=== PATIENT | female | born 1990 | race Caucasian/White ===

== ENCOUNTER 2017-01-06 23:03 | Emergency (ER) | payer OTHER ==
[~2017-01-06] VITALS: Ht 172.7 cm; Wt 68.0 kg
[~2017-01-06 23:03] MED LIST: ADDERALL10 MG PO; ANAPROX DS550 MG PO; CLARITIN10 MG PO; CLINDAMYCIN HC150 MG PO; DOXYCYCLINE MO100 MG PO; EES400 MG PO; FIORICET 325 MG1 TAB PO; FLAGYL500 MG PO; LAMICTAL100 MG PO; MACROBID100 M1 PO; MEDROL DOSEPAK4 MG; MEDROL DOSEPAK4 MG PO; MOTRIN600 MG PO; MOTRIN800 MG PO; MULTIPLE VITAMI1 CAP PO; NO MEDS; SEPTRA DS 800 M1 TAB PO; ULTRAM50 MG PO; VALIUM10 MG PO; VICODIN 5/500 505 MG; ZITHROMAX Z PA250 MG PO; ZITHROMAX250 MG PO; ZOFRAN4 MG PO
[2017-01-07] MEDS ORDERED: DELTASONE20 M1 PO (00:32)
[2017-01-07] MEDS ORDERED: ROBITUSSIN AC 110 ML PO (00:32)
== END 2017-01-07 01:31 | disposition home or self-care (01) ==
LOC: ED 23:03
DX: J98.01 Acute bronchospasm (principal); R05 Cough; F17.200 Nicotine dependence, unspecified, uncomplicated; Z88.0 Allergy status to penicillin

== ENCOUNTER 2017-01-30 22:35 | Emergency (ER) | payer OTHER ==
[~2017-01-30] VITALS: Ht 1798 cm; Wt 68.0 kg
[~2017-01-30 22:35] MED LIST changes: +DELTASONE20 M1 PO; +ROBITUSSIN AC 110 ML PO
[2017-01-30 22:38] VITALS: BP 132/89
[2017-01-30 23:16] LABS: BASO % 0.2 % (0.0-1.0); EOS # 0.2 10*3/uL (0.0-0.4); EOS % 1.9 % (1.0-4.0); HEMATOCRIT 36.4 % (37.0-47.0); HEMOGLOBIN 11.4 g/dl (12.0-16.0); LYMPH # 4.1 10*3/uL (1.3-4.4); LYMPH % 37.8 % (27.0-41.0); MEAN CELL VOLUME 83.9 fl (81.0-99.0); MEAN CORPUSCULAR HGB 26.3 pg (27.0-31.0); MEAN CORPUSCULAR HGB CONC 31.3 g/dl (33.0-37.0); MEAN PLATELET VOLUME 10.4 fl (9.6-12.3); MONO # 0.8 10*3/uL (0.1-1.0); MONO % 7.6 % (3.0-9.0); NEUT # 5.7 10*3/uL (2.3-7.9); NEUT % 52.2 % (47.0-73.0); PLATELET COUNT AUTOMATED 277 10*3/uL (130-400); RED BLOOD COUNT 4.34 10*6/uL (4.10-5.10); WHITE BLOOD COUNT 10.9 10*3/uL (4.8-10.8)
[2017-01-30 23:29] LABS: BUN 9 mg/dl (7-24); CARBON DIOXIDE 25 mmol/L (21-32); CHLORIDE 110 mmol/L (98-107); EST GLOM FILT AFRICAN AMERICAN > 60 ml/min; GLUCOSE 95 mg/dL (65-99); POTASSIUM 3.5 mmol/L (3.5-5.1); SODIUM 143 mmol/L (136-145)
[2017-01-30 23:33] LABS: C-REACTIVE PROTEIN 0.78 MG/DL (0-0.3)
[2017-01-30 23:35] LABS: BILIRUBIN NEGATIVE (NEGATIVE); BLOOD TRACE-INTACT (NEGATIVE); CLARITY SL CLOUDY (CLEAR); COLOR YELLOW (YELLOW); GLUCOSE NEGATIVE (NEGATIVE); KETONE TRACE (NEGATIVE); LEUKO ESTERASE TRACE (NEGATIVE); NITRITE NEGATIVE (NEGATIVE); PH 5.5 (5.0-9.0); PROTEIN TRACE (NEGATIVE); UROBILINOGEN 0.2 E.U./dl (0.2-1.0)
[2017-01-30 23:43] LABS: BACTERIA 1+; EPITHELIAL CELLS 35-40; URINE REFLEX COMMENT YES (NO); WBC 21-30 wbc/hpf (0-5)
[2017-01-31] MEDS ORDERED: ULTRAM50 MG PO (00:31)
[2017-01-31] MEDS ORDERED: MACROBID100 M1 PO (00:31)
== END 2017-01-31 01:14 | disposition home or self-care (01) ==
LOC: ED 22:35
PROVIDERS: Student in an Organized Health Care Education/Training Program
DX: R10.2 Pelvic and perineal pain (principal); R82.71 Bacteriuria; F17.200 Nicotine dependence, unspecified, uncomplicated; Z88.0 Allergy status to penicillin

== ENCOUNTER 2017-09-27 19:49 | Emergency (ER) | payer OTHER ==
[~2017-09-27] VITALS: Wt 72.6 kg
[2017-09-27 19:58] VITALS: BP 119/76
[2017-09-27 20:15] LABS: BILIRUBIN NEGATIVE (NEGATIVE); BLOOD 1+ (NEGATIVE); CLARITY CLOUDY (CLEAR); COLOR YELLOW (YELLOW); GLUCOSE NEGATIVE (NEGATIVE); KETONE NEGATIVE (NEGATIVE); LEUKO ESTERASE 3+ (NEGATIVE); NITRITE NEGATIVE (NEGATIVE); UROBILINOGEN 0.2 E.U./dl (0.2-1.0)
[2017-09-27 20:22] LABS: BACTERIA 2+; EPITHELIAL CELLS 0-2; WBC TNTC wbc/hpf (0-5)
[2017-09-27] MEDS ORDERED: LEVAQUIN750 M1 PO (20:54)
[2017-09-27] MEDS ORDERED: PYRIDIUM200 M1 PO (20:54)
== END 2017-09-27 20:18 | disposition home or self-care (01) ==
LOC: ED 19:49
PROVIDERS: Physician Assistant
DX: N39.0 Urinary tract infection, site not specified (principal); J06.9 Acute upper respiratory infection, unspecified; F17.200 Nicotine dependence, unspecified, uncomplicated; Z88.0 Allergy status to penicillin; Z79.899 Other long term (current) drug therapy

== ENCOUNTER → 2018-01-04 | Outpatient (CLI) | payer OTHER ==
[~2018-01-04] MED LIST changes: +LEVAQUIN750 M1 PO; +PYRIDIUM200 M1 PO
== END | disposition home or self-care (01) ==
LOC: US 07:30
DX: N85.2 Hypertrophy of uterus (principal); R10.31 Right lower quadrant pain

== ENCOUNTER 2018-03-05 21:58 | Emergency (ER) | payer OTHER ==
[~2018-03-05] VITALS: Ht 175.2 cm; Wt 78.5 kg
[2018-03-05 22:41] LABS: BILIRUBIN NEGATIVE (NEGATIVE); BLOOD TRACE-LYSED (NEGATIVE); CLARITY CLEAR (CLEAR); COLOR YELLOW (YELLOW); GLUCOSE NEGATIVE (NEGATIVE); KETONE 1+ (NEGATIVE); LEUKO ESTERASE NEGATIVE (NEGATIVE); NITRITE NEGATIVE (NEGATIVE); UROBILINOGEN 0.2 E.U./dl (0.2-1.0)
[2018-03-05 23:01] LABS: BACTERIA TRACE; EPITHELIAL CELLS 0-2
[2018-03-05 23:15] LABS: BASO % 0.4 % (0.0-1.0); EOS # 0.2 10*3/uL (0.0-0.4); EOS % 2.3 % (1.0-4.0); HEMATOCRIT 36.7 % (37.0-47.0); LYMPH # 4.4 10*3/uL (1.3-4.4); LYMPH % 46.1 % (27.0-41.0); MEAN CORPUSCULAR HGB 28.8 pg (27.0-31.0); MEAN CORPUSCULAR HGB CONC 32.7 g/dl (33.0-37.0); MEAN PLATELET VOLUME 10.7 fl (9.6-12.3); MONO # 0.6 10*3/uL (0.1-1.0); MONO % 6.1 % (3.0-9.0); NEUT # 4.3 10*3/uL (2.3-7.9); NEUT % 44.9 % (47.0-73.0); PLATELET COUNT AUTOMATED 270 10*3/uL (130-400); RED BLOOD COUNT 4.17 10*6/uL (4.10-5.10); WHITE BLOOD COUNT 9.5 10*3/uL (4.8-10.8)
[2018-03-05 23:30] LABS: ALBUMIN 3.7 gm/dl (3.1-4.5); ALKALINE PHOSPHATASE 58 U/L (45-117); BUN 12 mg/dl (7-24); CHLORIDE 109 mmol/L (98-107); CREATININE 0.66 mg/dL (0.55-1.02); LIPASE 139 U/L (73-393); POTASSIUM 3.4 mmol/L (3.5-5.1); SGOT/AST 12 IU/L (3-35); SGPT/ALT 15 U/L (12-78); SODIUM 140 mmol/L (136-145); TOTAL PROTEIN 6.8 gm/dL (6.4-8.2)
[2018-03-05] MEDS ORDERED: IBUPROFEN600 MG PO (23:39)
[2018-03-05 23:55] VITALS: BP 113/76
== END 2018-03-05 23:47 | disposition home or self-care (01) ==
LOC: ED 21:58
PROVIDERS: Physician Assistant
DX: R10.2 Pelvic and perineal pain (principal); F17.200 Nicotine dependence, unspecified, uncomplicated; Z88.0 Allergy status to penicillin

== ENCOUNTER 2018-04-12 04:34 | Emergency (ER) | payer OTHER ==
[~2018-04-12] VITALS: Ht 175 cm; Wt 72.6 kg
[~2018-04-12 04:34] MED LIST changes: +IBUPROFEN600 MG PO
[2018-04-12 05:13] LABS: BASO % 0.3 % (0.0-1.0); EOS # 0.3 10*3/uL (0.0-0.4); EOS % 2.4 % (1.0-4.0); HEMATOCRIT 40.3 % (37.0-47.0); HEMOGLOBIN 13.1 g/dl (12.0-16.0); LYMPH # 4.6 10*3/uL (1.3-4.4); LYMPH % 38.3 % (27.0-41.0); MEAN CELL VOLUME 88.2 fl (81.0-99.0); MEAN CORPUSCULAR HGB 28.7 pg (27.0-31.0); MEAN CORPUSCULAR HGB CONC 32.5 g/dl (33.0-37.0); MEAN PLATELET VOLUME 11.4 fl (9.6-12.3); MONO # 0.9 10*3/uL (0.1-1.0); MONO % 7.8 % (3.0-9.0); NEUT # 6.1 10*3/uL (2.3-7.9); NEUT % 50.9 % (47.0-73.0); PLATELET COUNT AUTOMATED 272 10*3/uL (130-400); RED BLOOD COUNT 4.57 10*6/uL (4.10-5.10)
[2018-04-12 05:14] LABS: BILIRUBIN NEGATIVE (NEGATIVE); BLOOD 2+ (NEGATIVE); CLARITY CLOUDY (CLEAR); COLOR YELLOW (YELLOW); GLUCOSE NEGATIVE (NEGATIVE); KETONE NEGATIVE (NEGATIVE); LEUKO ESTERASE 1+ (NEGATIVE); NITRITE NEGATIVE (NEGATIVE); UROBILINOGEN 0.2 E.U./dl (0.2-1.0)
[2018-04-12 05:29] LABS: BACTERIA 1+; RBC 16-20 rbc/hpf (0-2)
[2018-04-12 05:30] LABS: ALBUMIN 3.7 gm/dl (3.1-4.5); ALKALINE PHOSPHATASE 73 U/L (45-117); BUN 11 mg/dl (7-24); CHLORIDE 105 mmol/L (98-107); CREATININE 0.78 mg/dL (0.55-1.02); LIPASE 139 U/L (73-393); POTASSIUM 3.8 mmol/L (3.5-5.1); SGOT/AST 11 IU/L (3-35); SGPT/ALT 16 U/L (12-78); SODIUM 140 mmol/L (136-145); TOTAL PROTEIN 7.6 gm/dL (6.4-8.2)
[2018-04-12 05:33] LABS: B-hCG (QUALITATIVE) NEGATIVE (NEGATIVE)
[2018-04-12 07:11] VITALS: BP 107/75
[2018-04-12] MEDS ORDERED: PEPCID20 MG PO (09:00)
== END 2018-04-12 09:01 | disposition home or self-care (01) ==
LOC: ED 04:34
PROVIDERS: Emergency Medicine Emergency Medical Services
DX: K29.00 Acute gastritis without bleeding (principal); Z79.2 Long term (current) use of antibiotics; Z88.0 Allergy status to penicillin

== ENCOUNTER 2018-10-01 07:12 | Emergency (ER) | payer OTHER ==
[~2018-10-01] VITALS: Ht 175.2 cm; Wt 68.9 kg
[~2018-10-01 07:12] MED LIST changes: +PEPCID20 MG PO
[2018-10-01 07:13] VITALS: BP 134/95
[2018-10-01] MEDS ORDERED: CLINDAMYCIN150 MG PO (07:31)
[2018-10-01] MEDS ORDERED: Motrin,Rufen800 MG PO (07:31)
[2018-10-02] MEDS ORDERED: KEFLEX500 M1 PO (10:24)
[2018-10-02] MEDS ORDERED: NORCO 10-325 T1 EACH PO (10:27)
== END 2018-10-01 07:45 | disposition home or self-care (01) ==
LOC: ED 07:12
DX: K02.9 Dental caries, unspecified (principal); Z88.0 Allergy status to penicillin

== ENCOUNTER 2018-10-02 09:50 | Emergency (ER) | payer OTHER ==
[~2018-10-02] VITALS: Ht 175.2 cm; Wt 69.9 kg
[~2018-10-02 09:50] MED LIST changes: +CLINDAMYCIN150 MG PO; +Motrin,Rufen800 MG PO
[2018-10-02 09:53] VITALS: BP 136/94
[2018-10-02] MEDS ORDERED: KEFLEX500 M1 PO (10:24)
[2018-10-02] MEDS ORDERED: NORCO 10-325 T1 EACH PO (10:27)
== END 2018-10-02 10:30 | disposition home or self-care (01) ==
LOC: ED 09:50
DX: K04.7 Periapical abscess without sinus (principal); K02.9 Dental caries, unspecified; F17.200 Nicotine dependence, unspecified, uncomplicated; Z88.0 Allergy status to penicillin; Z79.2 Long term (current) use of antibiotics; Z79.899 Other long term (current) drug therapy

== ENCOUNTER 2019-04-10 00:54 | Emergency (ER) | payer OTHER ==
[~2019-04-10] VITALS: Ht 175.2 cm; Wt 72.6 kg
[~2019-04-10 00:54] MED LIST changes: +CHERATUSSIN AC118 M1 PO; +KEFLEX500 M1 PO; +NORCO 10-325 T1 EACH PO
[2019-04-10 00:56] VITALS: BP 130/85
== END 2019-04-10 02:20 | disposition home or self-care (01) ==
LOC: ED 00:54
DX: S60.041A Contusion of right ring finger without damage to nail, initial encounter (principal); S60.051A Contusion of right little finger without damage to nail, initial encounter; Z88.0 Allergy status to penicillin; W22.8XXA Striking against or struck by other objects, initial encounter; Y93.89 Activity, other specified; Y92.89 Other specified places as the place of occurrence of the external cause; Y99.8 Other external cause status

== ENCOUNTER 2019-12-01 14:41 | Emergency (ER) | payer OTHER ==
[~2019-12-01] VITALS: Ht 175.2 cm; Wt 68.0 kg
[2019-12-01 14:53] VITALS: BP 134/87
[2019-12-01 15:55] LABS: BASO % 0.2 % (0.0-1.0); EOS # 0.2 10*3/uL (0.0-0.4); EOS % 1.8 % (1.0-4.0); HEMOGLOBIN 14.3 g/dl (12.0-16.0); LYMPH # 1.8 10*3/uL (1.3-4.4); LYMPH % 17.1 % (27.0-41.0); MEAN CELL VOLUME 87.9 fl (81.0-99.0); MEAN CORPUSCULAR HGB 27.9 pg (27.0-31.0); MEAN CORPUSCULAR HGB CONC 31.8 g/dl (33.0-37.0); MEAN PLATELET VOLUME 10.4 fl (9.6-12.3); MONO % 9.4 % (3.0-9.0); NEUT # 7.5 10*3/uL (2.3-7.9); NEUT % 71.3 % (47.0-73.0); PLATELET COUNT AUTOMATED 286 10*3/uL (130-400); RED BLOOD COUNT 5.12 10*6/uL (4.10-5.10); RED CELL DISTRI WIDTH 13.6 % (0-14.5); WHITE BLOOD COUNT 10.5 10*3/uL (4.8-10.8)
[2019-12-01 16:05] LABS: BILIRUBIN NEGATIVE (NEGATIVE); BLOOD NEGATIVE (NEGATIVE); CLARITY CLEAR (CLEAR); COLOR YELLOW (YELLOW); GLUCOSE NEGATIVE (NEGATIVE); KETONE NEGATIVE (NEGATIVE); LEUKO ESTERASE NEGATIVE (NEGATIVE); NITRITE NEGATIVE (NEGATIVE); UROBILINOGEN 0.2 E.U./dl (0.2-1.0)
[2019-12-01 16:06] LABS: BACTERIA TRACE; EPITHELIAL CELLS 21-30; WBC 0-2 wbc/hpf (0-5)
[2019-12-01 16:07] LABS: MUCOUS 2+
[2019-12-01 16:20] LABS: ALBUMIN 3.9 gm/dl (3.1-4.5); BUN 15 mg/dl (7-24); CHLORIDE 110 mmol/L (98-107); CREATININE 0.86 mg/dL (0.55-1.02); LIPASE 84 U/L (73-393); POTASSIUM 3.9 mmol/L (3.5-5.1); SGOT/AST 12 IU/L (3-35); SGPT/ALT 21 U/L (12-78); SODIUM 140 mmol/L (136-145); TOTAL PROTEIN 7.7 gm/dL (6.4-8.2)
[2019-12-01 16:21] LABS: ALKALINE PHOSPHATASE 69 U/L (45-117)
[2019-12-01] MEDS ORDERED: PROTONIX40 MG PO (16:54)
== END 2019-12-01 17:02 | disposition home or self-care (01) ==
LOC: ED 14:41
PROVIDERS: Nurse Practitioner Family
DX: K21.9 Gastro-esophageal reflux disease without esophagitis (principal); G43.909 Migraine, unspecified, not intractable, without status migrainosus; F17.200 Nicotine dependence, unspecified, uncomplicated; Z88.0 Allergy status to penicillin

== ENCOUNTER 2020-03-10 14:42 | Emergency (ER) | payer OTHER ==
[~2020-03-10] VITALS: Ht 175.2 cm; Wt 72.6 kg
[~2020-03-10 14:42] MED LIST changes: +PROTONIX40 MG PO
[2020-03-10 14:49] VITALS: BP 118/79
[2020-03-10] MEDS ORDERED: ZITHROMAX250 MG PO (16:22)
== END 2020-03-10 16:45 | disposition home or self-care (01) ==
LOC: ED 14:42
DX: J02.0 Streptococcal pharyngitis (principal); Z88.0 Allergy status to penicillin

== ENCOUNTER 2020-11-20 11:10 | Emergency (ER) | payer OTHER ==
[~2020-11-20] VITALS: Ht 175.2 cm; Wt 72.6 kg
[2020-11-20 11:24] VITALS: BP 132/90
== END 2020-11-20 13:58 | disposition home or self-care (01) ==
LOC: ED 11:10
DX: S93.402A Sprain of unspecified ligament of left ankle, initial encounter (principal); Z98.51 Tubal ligation status; Z88.0 Allergy status to penicillin; Z79.899 Other long term (current) drug therapy; Z79.2 Long term (current) use of antibiotics; X50.1XXA Overexertion from prolonged static or awkward postures, initial encounter; Y93.89 Activity, other specified; Y92.89 Other specified places as the place of occurrence of the external cause; Y99.8 Other external cause status

== ENCOUNTER 2023-12-12 03:25 | Emergency (ER) | payer OTHER ==
[~2023-12-12] VITALS: Ht 175.2 cm; Wt 81.6 kg
[2023-12-12 03:40] VITALS: BP 127/86
== END 2023-12-12 04:42 | disposition home or self-care (01) ==
LOC: ED 03:25
DX: J10.1 Influenza due to other identified influenza virus with other respiratory manifestations (principal); Z20.822 Contact with and (suspected) exposure to COVID-19; F41.9 Anxiety disorder, unspecified; F31.9 Bipolar disorder, unspecified; G43.909 Migraine, unspecified, not intractable, without status migrainosus; Z88.1 Allergy status to other antibiotic agents; Z88.0 Allergy status to penicillin

== ENCOUNTER 2024-01-16 04:03 | Emergency (ER) | payer OTHER ==
[~2024-01-16] VITALS: Ht 175.2 cm; Wt 81.6 kg
[2024-01-16 04:09] VITALS: BP 132/98
[2024-01-16 04:38] LABS: BASO % 0.2 % (0.0-1.0); EOS # 0.2 10*3/uL (0.0-0.4); EOS % 2.5 % (1.0-4.0); HEMATOCRIT 43.6 % (37.0-47.0); LYMPH # 2.4 10*3/uL (1.3-4.4); LYMPH % 26.2 % (27.0-41.0); MEAN CELL VOLUME 86.7 fl (81.0-99.0); MEAN CORPUSCULAR HGB 28.2 pg (27.0-31.0); MEAN CORPUSCULAR HGB CONC 32.6 g/dl (33.0-37.0); MEAN PLATELET VOLUME 10.1 fl (9.6-12.3); MONO # 0.8 10*3/uL (0.1-1.0); MONO % 9.1 % (3.0-9.0); NEUT # 5.6 10*3/uL (2.3-7.9); NEUT % 61.7 % (47.0-73.0); PLATELET COUNT AUTOMATED 275 10*3/uL (130-400); RED BLOOD COUNT 5.03 10*6/uL (4.10-5.10); RED CELL DISTRI WIDTH 12.9 % (0-14.5); WHITE BLOOD COUNT 9.2 10*3/uL (4.8-10.8)
[2024-01-16 04:59] LABS: ALKALINE PHOSPHATASE 73 U/L (46-116); BUN 8 mg/dl (9-23); CHLORIDE 103 mmol/L (98-107); LIPASE 28 U/L (12-53); POTASSIUM 3.5 mmol/L (3.4-5.1); SGPT/ALT 9 U/L (5-49); TOTAL PROTEIN 7.4 gm/dL (6.0-8.0)
[2024-01-16] MEDS ORDERED: Ondansetron Hydrochloride 4 MG TAB SL ONE (07:00)
[2024-01-16] MEDS ORDERED: METRONIDAZOLE 500 MG TAB PO ONE (07:00)
[2024-01-16] MEDS ORDERED: methylPREDNISolone sod succ 125 MG VIAL IM ONE (07:00)
[2024-01-16] MEDS ORDERED: Acetaminophen/Hydrocodone 5 MG/325 MG TABLET PO ONE (07:00)
[2024-01-16] MEDS ORDERED: Ciprofloxacin Hydrochloride 500 MG TAB PO ONE (07:00)
[2024-01-16] MEDS ORDERED: CIPRO500 MG PO (07:05)
[2024-01-16] MEDS ORDERED: PREDNISONE20 M1 PO (07:05)
[2024-01-16] MEDS ORDERED: METRONIDAZOLE500 M1 PO (07:05)
== END 2024-01-16 07:15 | disposition home or self-care (01) ==
LOC: ED 04:03
PROVIDERS: Internal Medicine
DX: K52.9 Noninfective gastroenteritis and colitis, unspecified (principal); R11.2 Nausea with vomiting, unspecified; F41.9 Anxiety disorder, unspecified; F31.9 Bipolar disorder, unspecified; G43.909 Migraine, unspecified, not intractable, without status migrainosus; Z88.0 Allergy status to penicillin; Z88.1 Allergy status to other antibiotic agents

== ENCOUNTER 2024-01-25 07:48 | Emergency (ER) | payer OTHER ==
[~2024-01-25 07:48] MED LIST changes: +CIPRO500 MG PO; +METRONIDAZOLE500 M1 PO; +PREDNISONE20 M1 PO
[2024-01-25 08:01] VITALS: BP 132/80
[2024-01-25] MEDS ORDERED: DIAZEPAM 5 MG TAB PO ONE (08:05)
[2024-01-25] MEDS ORDERED: Acetaminophen/Oxycodone 5 MG/325 MG TABLET PO ONE (08:05)
[2024-01-25] MEDS ORDERED: TRAMADOL HCL50 MG PO (08:09)
[2024-01-25] MEDS ORDERED: METHOCARBAMOL500 M1 PO (08:09)
== END 2024-01-25 08:31 | disposition home or self-care (01) ==
LOC: ED 07:48
DX: M76.9 Unspecified enthesopathy, lower limb, excluding foot (principal); F41.9 Anxiety disorder, unspecified; F31.9 Bipolar disorder, unspecified; G43.909 Migraine, unspecified, not intractable, without status migrainosus; Z88.1 Allergy status to other antibiotic agents; Z88.0 Allergy status to penicillin

== ENCOUNTER → 2024-01-30 | Outpatient (CLI) | payer OTHER ==
[~2024-01-30] MED LIST changes: +METHOCARBAMOL500 M1 PO; +TRAMADOL HCL50 MG PO
[2024-01-30 10:23] LABS: FREE T4 1.18 ng/dl (0.89-1.76)
== END | disposition home or self-care (01) ==
LOC: LAB 09:13
PROVIDERS: ATTEND Nurse Practitioner Family
DX: K52.9 Noninfective gastroenteritis and colitis, unspecified (principal); R10.9 Unspecified abdominal pain; R53.83 Other fatigue

== ENCOUNTER → 2024-03-11 | Outpatient (CLI) | payer OTHER ==
[2024-03-12 05:07] LABS: HEPATITIS B SURFACE AB Reactive (.); HEPATITIS B SURFACE AG Negative (Negative); HEPATITIS Be ANTIGEN Negative (Negative)
[2024-03-13 16:09] LABS: TB1 Ag VALUE 0.05 IU/mL (.)
== END | disposition home or self-care (01) ==
LOC: LAB 08:51
PROVIDERS: ATTEND Internal Medicine Gastroenterology
DX: K52.9 Noninfective gastroenteritis and colitis, unspecified (principal)